=== PATIENT | female | born 1965 | race Caucasian/White ===

== ENCOUNTER → 2016-09-05 | Outpatient (CLI) | payer OTHER ==
[~2016-09-05] MED LIST: ALPR0.5T6 PO; ASPI-621 PO; CITA40TA5 PO; CLIN300C93 PO; DOCU-30 PO; OXYC10TA6 PO; WARF7.5T6 PO-COUM
== END | disposition home or self-care (01) ==
LOC: LAB 12:19
PROVIDERS: ATTEND Nurse Practitioner Family
DX: P00-P96 Certain conditions originating in the perinatal period (principal); Z79.01 Long term (current) use of anticoagulants; Z95.2 Presence of prosthetic heart valve
CPT/HCPCS: 36415; 85610

== ENCOUNTER → 2016-10-09 | Outpatient (CLI) | payer OTHER | END | disposition home or self-care (01) | LOC: LAB 15:27 | PROVIDERS: ATTEND Nurse Practitioner Family | DX: P00-P96 Certain conditions originating in the perinatal period (principal); Z95.2 Presence of prosthetic heart valve; Z79.01 Long term (current) use of anticoagulants | CPT/HCPCS: 36415; 85610 ==

== ENCOUNTER → 2016-12-27 | Outpatient (CLI) | payer OTHER | END | disposition home or self-care (01) | LOC: CFH 09:13 | PROVIDERS: ATTEND Internal Medicine Cardiovascular Disease | DX: I77.819 Aortic ectasia, unspecified site (principal); I51.7 Cardiomegaly; F17.210 Nicotine dependence, cigarettes, uncomplicated; Z95.2 Presence of prosthetic heart valve | CPT/HCPCS: 93306 ==

== ENCOUNTER → 2018-09-29 | Outpatient (CLI) | payer OTHER ==
[~2018-09-29] MED LIST changes: -ASPI-621 PO; +ASPI81TA45 PO; +CLIN300C8 PO; -CLIN300C93 PO; +DOCU-131 PO; -DOCU-30 PO; +WARF7.5T46 PO-COUM; -WARF7.5T6 PO-COUM
== END | disposition home or self-care (01) ==
LOC: CFH 07:33
PROVIDERS: ATTEND Internal Medicine Cardiovascular Disease
DX: I05.9 Rheumatic mitral valve disease, unspecified (principal); Z95.4 Presence of other heart-valve replacement
CPT/HCPCS: 93306

== ENCOUNTER → 2019-10-15 | Outpatient (CLI) | payer OTHER ==
[~2019-10-15] MED LIST changes: +OLME20TA17 PO
== END | disposition home or self-care (01) ==
LOC: CFH 08:53
PROVIDERS: ATTEND Internal Medicine Cardiovascular Disease
DX: I51.7 Cardiomegaly (principal); Q25.49 Other congenital malformations of aorta
CPT/HCPCS: 93306

== ENCOUNTER 2019-10-17 03:02 | Inpatient (IN) | payer OTHER ==
[~2019-10-17] VITALS: Ht 165.1 cm; Wt 98.1 kg
[~2019-10-17 03:02] MED LIST changes: -OLME20TA17 PO
[2019-10-17] MEDS ORDERED: OLME20TA17 PO (03:23)
--- NOTE | 2019-10-17 03:25 | NUR ---
VERY PLEASANT LADY HERE WITH HISTORY OF AORTIC VALVE REPLACEMENT 2014 NOTES ONSET CHEST PAIN 0000, STATES PAIN L SIDE OF CHEST RADIATE TO BACK AND DOWN L ARM, PAIN IS WORSE DOWN ARM WITH DEEP INSPIRATION, NO CHANGES WITH EXERTION/MOVEMENT OTHERWISE. PAIN HAS PERSISTED SINCE, DENIES NAUSEA, DENIES SOB, NOTES THAT SHE HAS NOT HAD THIS PAIN BEFORE. RECENTLY STARTED ON BENICAR SATURDAY WAS HYPERTENSIVE FOR HER LAST ECHO ON SATURDAY 160/102. DR MEJÍA TO BEDSIDE, PT PLACED ON ALL MONITORS AND CALL STOVER IN REACH AND AWARE OF USE, SPO2 93% RA, IS DAILY SMOKERS, PLACED 2LNC WITH SPO2 TO 98%
[2019-10-17] MEDS ORDERED: NITROGLYCERIN SINGLE TAB 0.4 MG SL PRN (03:30)
[2019-10-17] MEDS ORDERED: NITROGLYCERIN SINGLE TAB 0.4 MG SL ONE (03:37)
--- NOTE | 2019-10-17 03:40 | NUR ---
MEDICATED WITH NTG SL AT THIS TIME.PT REPORTS THAT HER PAIN WAS 5/10 BEFORE AND IS NOW RESOLVED AFTER NTG.
[2019-10-17 03:51] LABS: BASOPHILS # (AUTO) 0.01 x10^3/uL (0-0.1); BASOPHILS % (AUTO) 0 % (0-1); EOSINOPHILS # (AUTO) 0.02 x10^3/uL (0-0.4); EOSINOPHILS % (AUTO) 0 % (1-7); LYMPHOCYTES % (AUTO) 24 % (22-44); MD NO; MEAN CORPUSCULAR HEMOGLOBIN 30.9 pg (27.0-34.8); MEAN CORPUSCULAR HGB CONC 32.8 g/dL (32.4-35.8); MEAN CORPUSCULAR VOLUME 94.2 fL (80-100); MEAN PLATELET VOLUME 9.9 fL (7.4-10.4); MONOCYTES # (AUTO) 0.48 x10^3/uL (0.2-0.8); MONOCYTES % (AUTO) 8 % (2-9); NEUTROPHILS # (AUTO) 3.91 x10^3/uL (1.8-6.8); NEUTROPHILS % (AUTO) 67 % (42-75); PLATELET COUNT 165 x10^3/uL (130-400); RED CELL DISTRIBUTION WIDTH 15.4 % (9.6-15.2)
[2019-10-17 03:55] LABS: INTERNATIONAL NORMALIZED RATIO 1.46 (0.93-1.1); PROTHROMBIN TIME 15.5 Seconds (9.6-11.5)
[2019-10-17 03:57] LABS: ALANINE AMINOTRANSFERASE 64 U/L (12-78); ALBUMIN 3.3 g/dL (3.4-5.0); ANION GAP 7 mmol/L (5-15); CALCIUM 8.6 mg/dL (8.5-10.1); CHLORIDE 105 mmol/L (98-107)
[2019-10-17 04:01] LABS: ALKALINE PHOSPHATASE 71 U/L (45-117); BILIRUBIN,TOTAL 0.5 mg/dL (0.2-1.0); TOTAL PROTEIN 7.5 g/dL (6.4-8.2)
[2019-10-17 04:05] LABS: TROPONIN I 0.241 ng/mL (0.000-0.045)
[2019-10-17] MEDS ORDERED: HEPARIN 5,000 UNITS/ML, 1ML ONE (04:24)
[2019-10-17] MEDS ORDERED: HEPARIN 25,000 UNITS/250ML PMX 250 ML ONE (04:25)
[2019-10-17] MEDS ORDERED: HEPARIN 5,000 UNITS/ML, 1ML IV ONE (04:30)
[2019-10-17] MEDS: HEPARIN 25,000 UNITS/250ML PMX 250 ML IV PRN (04:34)
[2019-10-17 05:05] VITALS: BP 124/79
[2019-10-17] MEDS ORDERED: NITROGLYCERIN 0.4 MG/SPRAY SL PRN (05:30)
[2019-10-17] MEDS ORDERED: NICOTINE 21 MG/24 HR PATCH.TD24 TD SCH (05:30)
[2019-10-17] MEDS ORDERED: NITROGLYCERIN 0.4 MG BOTTLE (25 TABS) SL PRN ×2 (05:30)
[2019-10-17] MEDS ORDERED: DOCUSATE 100 MG CAPSULE PO PRN (05:30)
[2019-10-17] MEDS ORDERED: BISACODYL 10 MG SUPP PR PRN (05:30)
[2019-10-17] MEDS ORDERED: hydrALAzine 20 MG/ML, 1ML IVPush PRN (05:30)
[2019-10-17] MEDS ORDERED: LABETALOL 5MG/ML, 20ML IVPush PRN (05:30)
[2019-10-17] MEDS ORDERED: POLYETHYLENE GLYCOL 17 GM PACKET PO PRN (05:30)
[2019-10-17] MEDS ORDERED: morphine SULFATE 10 MG/ML, 1ML IVPush PRN ×2 (05:30→17:30)
[2019-10-17 06:55] VITALS: BP 121/81
[2019-10-17] MEDS: FAMOTIDINE 20 MG TABLET PO SCH ×2 (07:49→20:34)
[2019-10-17] MEDS: LISINOPRIL 10 MG TABLET PO SCH (07:49)
[2019-10-17] MEDS ORDERED: FAMOTIDINE 20 MG/2 ML IVPush SCH (09:00)
[2019-10-17 10:17] LABS: LDL/HDL RATIO 1.7 (0.5-3.0)
[2019-10-17] MEDS: HEPARIN 5,000 UNITS/ML, 1ML IV PRN ×2 (11:47→20:35)
[2019-10-17] MEDS: ASPIRIN 325 MG TABLET PO SCH (11:54)
[2019-10-17 13:30] VITALS: BP 106/70
[2019-10-17 17:15] VITALS: BP 123/83
[2019-10-17] MEDS: METOPROLOL TARTRATE 25 MG TAB PO SCH (17:16)
[2019-10-17 18:47] VITALS: BP 101/69
[2019-10-18 01:11] VITALS: BP 102/71
[2019-10-18 03:15] LABS: ANION GAP 4 mmol/L (5-15); CALCIUM 8.8 mg/dL (8.5-10.1); CHLORIDE 109 mmol/L (98-107); CREATININE 0.84 mg/dL (0.55-1.02)
[2019-10-18] MEDS: HEPARIN 5,000 UNITS/ML, 1ML IV PRN ×2 (03:34→19:20)
[2019-10-18] MEDS: HEPARIN 25,000 UNITS/250ML PMX 250 ML IV PRN ×2 (03:35→23:02)
[2019-10-18 04:02] LABS: INTERNATIONAL NORMALIZED RATIO 1.32 (0.93-1.1)
[2019-10-18] MEDS ORDERED: SODIUM CHLORIDE 0.9% 1,000 ML IV SCH ×2 (06:00→11:46)
[2019-10-18 06:15] VITALS: BP 105/73
[2019-10-18] MEDS: METOPROLOL TARTRATE 25 MG TAB PO SCH ×2 (06:17→17:15)
[2019-10-18] MEDS: ASPIRIN 325 MG TABLET PO SCH (06:17)
[2019-10-18 06:39] VITALS: BP 105/72
[2019-10-18] MEDS ORDERED: LIDOCAINE 1%, 20ML ONE (09:10)
[2019-10-18] MEDS ORDERED: FENTANYL PF 100 MCG/2ML ONE (09:10)
[2019-10-18] MEDS ORDERED: BIVALIRUDIN 250 MG ONE ×2 (09:10→11:18)
[2019-10-18] MEDS ORDERED: MIDAZOLAM 1 MG/ML, 5ML ONE (09:10)
[2019-10-18] MEDS ORDERED: VERAPAMIL 2.5 MG/ML, 2ML ONE (09:10)
[2019-10-18] MEDS ORDERED: TICAGRELOR 90 MG TABLET ONE (11:18)
[2019-10-18] MEDS ORDERED: WARFARIN MECH. VALVE PROTOCOL 2.5 to 3.5 XX PRN (12:00)
[2019-10-18] MEDS: LISINOPRIL 10 MG TABLET PO SCH (12:22)
[2019-10-18] MEDS: FAMOTIDINE 20 MG TABLET PO SCH ×2 (12:22→19:20)
[2019-10-18 12:30] VITALS: BP 117/77
[2019-10-18] MEDS ORDERED: WARFARIN 10 MG TABLET PO-COUM SCH (18:00)
[2019-10-18 19:28] VITALS: BP 101/68
[2019-10-19 00:33] VITALS: BP 110/73
[2019-10-19 01:16] LABS: INTERNATIONAL NORMALIZED RATIO 1.15 (0.93-1.1); PROTHROMBIN TIME 12.2 Seconds (9.6-11.5)
[2019-10-19] MEDS: METOPROLOL TARTRATE 25 MG TAB PO SCH ×3 (06:21→17:53)
[2019-10-19] MEDS: ASPIRIN 325 MG TABLET PO SCH (06:21)
[2019-10-19 07:15] VITALS: BP 101/73
[2019-10-19] MEDS: HEPARIN 5,000 UNITS/ML, 1ML IV PRN ×2 (09:24→22:15)
[2019-10-19] MEDS: LISINOPRIL 10 MG TABLET PO SCH (09:24)
[2019-10-19] MEDS: FAMOTIDINE 20 MG TABLET PO SCH ×2 (09:24→19:43)
[2019-10-19 12:05] VITALS: BP 102/67
[2019-10-19] MEDS: HEPARIN 25,000 UNITS/250ML PMX 250 ML IV PRN (16:12)
[2019-10-19 17:53] VITALS: BP 97/67
[2019-10-19 17:55] VITALS: BP 99/69
[2019-10-19] MEDS ORDERED: WARFARIN 5 MG TABLET PO-COUM ONE (18:00)
[2019-10-19 19:10] VITALS: BP 100/68
[2019-10-20 01:47] VITALS: BP 96/63
[2019-10-20] MEDS: HEPARIN 25,000 UNITS/250ML PMX 250 ML IV PRN ×2 (04:45→18:11)
[2019-10-20 05:00] LABS: INTERNATIONAL NORMALIZED RATIO 1.43 (0.93-1.1); PROTHROMBIN TIME 15.2 Seconds (9.6-11.5)
[2019-10-20] MEDS: ASPIRIN 325 MG TABLET PO SCH (05:33)
[2019-10-20] MEDS: METOPROLOL TARTRATE 25 MG TAB PO SCH (05:34)
[2019-10-20 05:35] VITALS: BP 92/65
[2019-10-20 07:35] VITALS: BP 90/60
[2019-10-20] MEDS ORDERED: METOPROLOL SUCCINATE 25 MG TAB.ER.24H PO SCH ×3 (08:30→21:00)
[2019-10-20] MEDS ORDERED: LISINOPRIL 5 MG TABLET PO SCH (09:00)
[2019-10-20] MEDS: FAMOTIDINE 20 MG TABLET PO SCH ×2 (10:09→22:12)
[2019-10-20] MEDS ORDERED: ATOR20TA37 PO (10:19)
[2019-10-20] MEDS ORDERED: ASPI81TA45 PO (10:19)
[2019-10-20] MEDS ORDERED: ENOX100S5 SQ (10:19)
[2019-10-20 14:39] VITALS: BP 99/67
[2019-10-20] MEDS ORDERED: WARFARIN 5 MG TABLET PO-COUM ONE (18:00)
[2019-10-20] MEDS ORDERED: ATORVASTATIN 20 MG TABLET PO SCH (21:00)
[2019-10-20 22:10] VITALS: BP 99/68
[2019-10-21 02:21] VITALS: BP 112/70
[2019-10-21] MEDS ORDERED: ASPIRIN 81 MG TABLET EC PO SCH (06:00)
[2019-10-21 06:11] LABS: INTERNATIONAL NORMALIZED RATIO 1.95 (0.93-1.1); PROTHROMBIN TIME 20.8 Seconds (9.6-11.5)
[2019-10-21] MEDS: HEPARIN 25,000 UNITS/250ML PMX 250 ML IV PRN (06:25)
[2019-10-21 06:46] VITALS: BP 95/68
[2019-10-21] MEDS: FAMOTIDINE 20 MG TABLET PO SCH (08:12)
[2019-10-21] MEDS ORDERED: ASPIRIN 325 MG TABLET PO SCH (09:00)
[2019-10-21] MEDS ORDERED: LISINOPRIL 5 MG TABLET PO SCH ×2 (09:00)
[2019-10-21] MEDS ORDERED: [UNRECOGNIZED DRUG - OTHER] XX (10:03)
[2019-10-21] MEDS ORDERED: ATOR20TA37 PO (10:03)
[2019-10-21] MEDS ORDERED: ASPI325T17 PO (10:03)
[2019-10-21] MEDS ORDERED: Warfarin Maintenance Protocol XX (10:03)
[2019-10-21] MEDS ORDERED: ENOXAPARIN 100 MG/ML ONE (10:17)
[2019-10-21] MEDS ORDERED: ENOXAPARIN 100 MG/ML SQ ONE (10:30)
[2019-10-21 12:47] VITALS: BP 135/91
[2019-10-21] MEDS ORDERED: METOPROLOL SUCCINATE 25 MG TAB.ER.24H PO SCH (21:00)
[2019-10-21] MEDS ORDERED: ATORVASTATIN 20 MG TABLET PO SCH (21:00)
== END 2019-10-21 11:36 | disposition home or self-care (01) | DRG 282 ==
LOC: ED 03:34 → EDIP 04:20 → 5SO 04:53
PROVIDERS: ADMIT Family Medicine; ATTEND Family Medicine
PROC: B211YZZ Fluoroscopy of Multiple Coronary Arteries using Other Contrast (ICD-10-PCS; principal; 2019-10-18)
PROC: 4A023N7 Measurement of Cardiac Sampling and Pressure, Left Heart, Percutaneous Approach (ICD-10-PCS; 2019-10-18)
DX: I21.4 Non-ST elevation (NSTEMI) myocardial infarction (principal); E66.9 Obesity, unspecified; E78.5 Hyperlipidemia, unspecified; F17.210 Nicotine dependence, cigarettes, uncomplicated; I10 Essential (primary) hypertension; I35.0 Nonrheumatic aortic (valve) stenosis; Z95.2 Presence of prosthetic heart valve; Z68.36 Body mass index [BMI] 36.0-36.9, adult; Z79.01 Long term (current) use of anticoagulants; Z79.82 Long term (current) use of aspirin; Z86.14 Personal history of Methicillin resistant Staphylococcus aureus infection; Z90.710 Acquired absence of both cervix and uterus
CPT/HCPCS: 36415; 93454; 96374; 99285; J3490; 71045; 75710; 80048; 80053; 80061; 83735; 83880; 84484; 85025; 85520; 85610; 85730; 93005; 93308; 93321; 93325; 99156; C1769; C1894; G0378; J0583; J1644; J1650; J2250; J3010; J7030; Q9967